=== PATIENT | female | born 1990 | race Caucasian/White ===

== ENCOUNTER → 2017-06-03 | Outpatient (CLI) | payer BC ==
[2017-06-03 14:26] LABS: LYME DISEASE AB IGG NEG (NEG); LYME DISEASE AB IGM NEG (NEG)
== END | disposition home or self-care (01) ==
LOC: C.LAB 12:40
PROVIDERS: ATTEND Otolaryngology
DX: A69.20 Lyme disease, unspecified (principal)

== ENCOUNTER 2021-02-05 04:40 | Inpatient (IN) ==
[2021-02-05] MEDS ORDERED: OXYTOCIN 30 UNITS/500 ML BAG IV PRN ×3 (05:20→10:36)
[2021-02-05] MEDS ORDERED: SODIUM CHLORIDE 0.9% INJ 10 ML VIAL ONE (05:38)
[2021-02-05] MEDS ORDERED: BUPIVACAINE 0.25% 30 ML VIAL ONE (05:38)
[2021-02-05] MEDS ORDERED: ePHEDrine sulfate 50 MG/ML AMP ONE (05:38)
[2021-02-05] MEDS ORDERED: fentaNYL 2MCG/ML ROPIVACAINE 1.25MG/ML 100 ML BAG EPI ONE (05:39)
[2021-02-05] MEDS ORDERED: fentaNYL citrate 100 MCG/2 ML VIAL ONE (05:39)
[2021-02-05] MEDS: LACTATED RINGER'S 1,000 ML IV PRN ×2 (05:44→06:52)
[2021-02-05 05:53] LABS: Hematocrit (blood only) 30.8 % (37-47); Hemoglobin 9.9 g/dL (12.0-16.0); Mean Corpuscular Hemoglobin 25.4 pg (25-34); Mean Corpuscular Hgb Conc 32.1 g/dL (32-36); Mean Platelet Volume 10.3 fL (7.4-10.4); Platelet Count 297 K/uL (130-400); RDW Coefficient of Variation 14.6 % (11.5-14.5); RDW Standard Deviation 41.4 fL (36.4-46.3); White Blood Count 12.73 K/uL (4.8-10.8)
--- NOTE | 2021-02-05 06:27 | Anesthesiology Consultation ---
Date of Service February 05, 2021 Assessment & Plan (1) Encounter for pre-operative examination: Chart Review Chart Review: Acceptable Risk for Surgery and Patient NOT seen in Pre Admission Testing Consults Requested none History Height/Weight Height: 5 ft 6 in Weight: 97.976 kg Allergies Allergy/AdvReac Type Severity Reaction Status Date / Time Sulfa (Sulfonamide Allergy Intermediate Hives Verified 11/17/19 15:38 Antibiotics) Medications Home Medications Medication Instructions Recorded Confirmed Last Taken PNV [id number]#95-ferrous fumarate-FA 1 tab PO DAILY 11/17/19 02/05/21 02/04/21 [] sertraline 150 mg PO DAILY 11/17/19 02/05/21 02/04/21 Active Medications Generic Name Dose Route Start Last Admin Trade Name Freq PRN Reason Stop Dose Admin Lactated Ringer's 1,000 mls @ 125 mls/hr 02/05/21 05:20 02/05/21 05:44 Lr IV 02/07/21 05:19 999 mls/hr .Q8H PRN Administration L&D Protocol Protocol Past Medical History Medical History No significant past medical history Spontaneous 2019 Past Surgical History Surgical History No significant past surgical history Social History Smoking Status: Never smoker Hx Alcohol Use: No Hx Substance Use: No Physical Exam Vital Signs Last Vital Signs Temp 36.6 C 02/05/21 04:58 Pulse 75 02/05/21 06:24 Resp 20 02/05/21 06:00 BP 129/86 02/05/21 04:55 Pulse Ox 98 02/05/21 06:24 Testing Laboratory Results 02/05/21 05:37
[2021-02-05] MEDS ORDERED: fentaNYL 2MCG/ML ROPIVACAINE 1.25MG/ML 100 ML BAG EPI PRN (06:58)
[2021-02-05] MEDS ORDERED: diphenhydrAMINE 50 MG/ML VIAL IV PRN (06:58)
[2021-02-05] MEDS ORDERED: ONDANSETRON INJ 2 MG/ML 2 ML VIAL IV PRN (06:58)
[2021-02-05] MEDS ORDERED: NALOXONE HCL 0.4 MG/1 ML VIAL/CARP IV PRN (06:58)
[2021-02-05] MEDS ORDERED: ePHEDrine sulfate 50 MG/ML AMP IV PRN (06:58)
[2021-02-05] MEDS ORDERED: NALOXONE HCL 1 MG in SODIUM CHLORIDE 0.9% 1000ML 1,000 ML IV PRN (06:58)
[2021-02-05] MEDS ORDERED: miSOPROStoL 100 MCG TAB PR ONE (10:36)
[2021-02-05] MEDS ORDERED: SUPERCREAM 0.870% 15 GM JAR EXT PRN (10:36)
[2021-02-05] MEDS ORDERED: DIPHTHERIA/TETANUS/PERTUSSIS 0.5 ML SYR/VIAL IM ONE (10:36)
[2021-02-05] MEDS ORDERED: bisacodyL 10 MG SUPP PR PRN (10:36)
[2021-02-05] MEDS ORDERED: BENZOCAINE 20% AER SPR 82.5 GM CAN EXT PRN (10:36)
[2021-02-05] MEDS ORDERED: HYDROCORTISONE ACETATE 25 MG SUPP PR PRN (10:36)
[2021-02-05] MEDS ORDERED: ACETAMINOPHEN 325 MG TAB PO PRN (10:36)
[2021-02-05] MEDS ORDERED: oxyCODONE/ACETAMINOPHEN 5mg/325mg TAB PO PRN (10:36)
[2021-02-05] MEDS: IBUPROFEN 600 MG TAB PO PRN ×2 (11:03→15:27)
--- NOTE | 2021-02-05 11:21 | Delivery Summary ---
DELIVERY NOTE: DATE OF DELIVERY: 02/05/2021. The patient is a 2, para 1, had one previous spontaneous AB. Blood type is A positive, group B strep negative, was admitted in active labor at 39 weeks and 2 days. On admission to the hospital , she was 5 cm dilated with bulging membranes. She was fluid loaded and then given epidural for whic h we maintained good pain relief. After pain was controlled, I checked her, she was essentially REM. I ruptured the membranes. There was a thin meconium noted. She then had an unstimulated labor and pushed for about an hour and delivered a live female via direct occiput anterior position over an intact perineum. Infant was suctioned through the mouth and the nose. The cord was allowed to p ulsate for one full minute and clamped and cut. Cord blood was taken with IV Pitocin running the lexi centa was removed intact. Inspection of the perineum revealed bilateral sulcus lacerations at about 4 and 8 o'clock and a small midline perineal laceration. The sulcus laceration on the right side was a bit deeper. I started with that, identified the top of the defect and used a running Vicryl sutur e out to beyond the hymenal ring to approximate the defect and to control the bleeding. I then worke d on the sulcus laceration on the left side, which was only about half the size and used a running Vi cryl out to beyond the hymenal ring to approximate the edges and control the bleeding. I then turned my attention to the midline. I used a deep suture to approximate the perineal body. A separate [place] p suture to approximate the bulbocavernosus muscle and a running suture to approximate the vaginal mu cosa out to beyond the hymenal ring. Following this, hemostasis was good. Vaginal exam revealed no sponges in the vagina. No vaginal defects. Approximations were good. I then did a rectal exam. No stitches through the rectum and I gave her 800 mcg of rectal Cytotec. ESTIMATED BLOOD LOSS: 200 mL. Job ID: [id number]
--- NOTE | 2021-02-05 12:13 | Anesthesia Procedure Note ---
Date of Service February 05, 2021 Anesthesia Post Epidural Note Vital Signs Vital Signs: Temp Pulse Resp BP Pulse Ox 36.9 C 81 22 110/58 L 99 02/05/21 10:31 02/05/21 12:01 02/05/21 11:35 02/05/21 12:01 02/05/21 10:29 Pain Intensity Perineal: Pain Intensity: 3 Notes Mental Status: alert / awake / arousable Nausea / Vomiting: adequately controlled Pain: adequately controlled Airway Patency, RR, SpO2: stable & adequate BP & HR: stable & adequate Hydration State: stable & adequate Neuraxial Anesthesia: was administered and sensory block is resolving Anesthetic Complications: no major complications apparent Epidural: Removed without complications and With tip intact
[2021-02-05] MEDS: ACETAMINOPHEN W/CODEINE #3 1 TAB PO PRN ×2 (13:27→18:04)
[2021-02-05] MEDS ORDERED: oxyCODONE/ACETAMINOPHEN 5mg/325mg TAB PO ONE (20:15)
[2021-02-05] MEDS: oxyCODONE/ACETAMINOPHEN 5mg/325mg TAB PO PRN (20:17)
[2021-02-05] MEDS: DOCUSATE SODIUM 100 MG CAP PO SCH (20:17)
[2021-02-06] MEDS ORDERED: oxyCODONE/ACETAMINOPHEN 5mg/325mg TAB PO ONE (03:40)
[2021-02-06] MEDS: IBUPROFEN 600 MG TAB PO PRN ×2 (06:10→23:16)
[2021-02-06 06:44] LABS: Hematocrit (blood only) 28.5 % (37-47); Hemoglobin 9.1 g/dL (12.0-16.0); Mean Corpuscular Hemoglobin 25.8 pg (25-34); Mean Corpuscular Hgb Conc 31.9 g/dL (32-36); Mean Corpuscular Volume 80.7 fL (80-100); Mean Platelet Volume 9.7 fL (7.4-10.4); Platelet Count 266 K/uL (130-400); RDW Standard Deviation 43.5 fL (36.4-46.3); Red Blood Count 3.53 M/uL (4.2-5.4); White Blood Count 12.24 K/uL (4.8-10.8)
[2021-02-06] MEDS: PRENATAL VITAMIN 1 TAB PO SCH (08:23)
[2021-02-06] MEDS: DOCUSATE SODIUM 100 MG CAP PO SCH ×2 (08:23→19:47)
[2021-02-06] MEDS: oxyCODONE/ACETAMINOPHEN 5mg/325mg TAB PO PRN ×4 (08:23→21:09)
--- NOTE | 2021-02-06 11:22 | Obstetrical Progress Note ---
Date of Service February 06, 2021 Assessment & Plan Admission and Anticipated Discharge Date Admission Date: February 05, 2021 Physical Exam Physical Exam: abdomen soft and non tender no calf tenderness ambulating well vaginal bleeding scant hgb 9.1 Results & Data ([facility]) Vital Signs (Past 12 Hours) Vital Signs Temp Pulse Resp BP Pulse Ox 02/06/21 07:46 36.8 C 80 18 117/79 98 02/06/21 03:44 36.5 C 80 16 116/81 02/06/21 00:30 36.7 C 85 18 118/78
[2021-02-06] MEDS ORDERED: bisacodyL 5 MG TABEC PO SCH (20:00)
[2021-02-07] MEDS: oxyCODONE/ACETAMINOPHEN 5mg/325mg TAB PO PRN ×2 (02:46→12:00)
[2021-02-07 06:31] LABS: Hematocrit (blood only) 28.6 % (37-47)
[2021-02-07] MEDS: DOCUSATE SODIUM 100 MG CAP PO SCH (08:09)
[2021-02-07] MEDS: PRENATAL VITAMIN 1 TAB PO SCH (08:09)
[2021-02-07] MEDS: IBUPROFEN 600 MG TAB PO PRN (08:09)
--- NOTE | 2021-02-07 08:48 | Obstetrical Progress Note ---
Date of Service February 07, 2021 Assessment & Plan Admission and Anticipated Discharge Date Admission Date: February 05, 2021 Physical Exam Physical Exam: abdomen soft and non tender no calf tenderness ambulating well vaginal bleeding scant hgb 9.0 Results & Data ([facility]) Vital Signs (Past 12 Hours) Vital Signs Temp Pulse Resp BP Pulse Ox 02/06/21 23:10 36.7 C 81 18 118/77 98
[2021-02-07] MEDS ORDERED: SERTRALINE HCL 50 MG TABLET PO SCH (09:00)
== END 2021-02-07 16:30 | disposition home or self-care (01) | DRG 807 ==
LOC: OPB 04:40 → 4S1 04:44 → 4S2 15:11